=== PATIENT | female | born 1960 | race Caucasian/White ===

== ENCOUNTER 2018-08-23 13:08 | Inpatient (IN) ==
[2018-08-23] MEDS ORDERED: SALINE LOCK IV FLUID XX ONE (13:40)
[2018-08-23] MEDS: NS 1,000 ML IV SCH (14:23)
[2018-08-23] MEDS: TYLENOL PO PRN ×2 (14:28→21:54)
[2018-08-23] MEDS ORDERED: ROCEPHIN 1 GM in NS 50 ML IV SCH (15:15)
[2018-08-23 15:18] LABS: BASO# 0.01 X1000 (0.0-0.2); BASO% 0.2 % (0.0-0.8); HEMATOCRIT 42.4 % (37.0-47.0); HEMOGLOBIN 14.6 g/dL (12.0-16.0); IMM GRAN# 0.04 X1000 (0.0-0.04); IMM GRAN% 0.7 % (0.0-0.5); LYMPH# 0.97 X1000 (1.2-3.4); LYMPH% 16.1 % (20.5-51.1); MCH 31.3 PG (27-31); MCHC 34.4 g/dL (33-37); MONO# 0.23 X1000 (0.11-0.59); MONO% 3.8 % (1.7-9.3); MPV 10.6 FL (7.4-10.4); NEUT# 4.76 X1000 (1.4-6.5); NEUT% 79.2 % (42.2-75.2); PLT 117 X1000 (130-400); RBC 4.66 XMIL (4.2-5.4); RDW 13.7 % (11.5-14.5); WBC 6.01 X1000 (4.8-10.8)
[2018-08-23 15:37] LABS: AGAP 13; ALB/GLOB RATIO 1.1; ALBUMIN 3.5 g/dL (3.5-5.0); ALKALINE PHOSPHATASE 53 U/L (32-104); BUN 12 mg/dL (8-22); CALCIUM 8.2 mg/dL (8.8-10.2); CHLORIDE 97 mmol/L (98-107); COSMO 263; CREATININE 0.6 mg/dL (0.5-0.9); ESTIMATED GFR > 60; GLUCOSE 117 mg/dL (70-104); GOT 39 U/L (10-30); GPT 23 U/L (10-36); POTASSIUM 3.5 mmol/L (3.5-5.1); SODIUM 131 mmol/L (136-145); TCO2 21 mmol/L (25-35); TOTAL BILIRUBIN 0.28 mg/dL (0.20-1.00); TOTAL PROTEIN 6.7 g/dL (6.3-8.3)
[2018-08-23] MEDS ORDERED: MORPHINE IV PRN (18:27)
[2018-08-23] MEDS: MOTRIN PO PRN (18:44)
[2018-08-23] MEDS: DUONEB (A & A) INH PRN (20:26)
--- NOTE | 2018-08-23 20:30 | Diag Imaging Result Doc PS360 ---
EXAM: CHEST-PORTABLE HISTORY: SOB TECHNIQUE: Portable chest single view COMPARISON: None. FINDINGS: The lungs are well expanded. The heart is not enlarged. The vessels are not distended. There are no infiltrates. No effusion identified. IMPRESSION: Negative exam. Electronically signed by Chris Cramer 08/23/2018 8:27 PM
[2018-08-23] MEDS: CRESTOR PO SCH (21:54)
[2018-08-23] MEDS: XANAX PO PRN (21:54)
[2018-08-24] MEDS: MOTRIN PO PRN ×3 (02:30→20:40)
[2018-08-24] MEDS: DUONEB (A & A) INH PRN ×4 (03:12→21:13)
[2018-08-24] MEDS: TYLENOL PO PRN ×4 (04:32→22:28)
[2018-08-24] MEDS ORDERED: LEXAPRO PO SCH (09:00)
[2018-08-24] MEDS ORDERED: PERCOCET-5 PO PRN (10:47)
[2018-08-24] MEDS ORDERED: ZITHROMAX PO SCH (11:00)
--- NOTE | 2018-08-24 11:13 | PROGRESS NOTE ---
DATE: 08/24/2018 SUBJECTIVE: The patient feels subjectively improved today despite having very high fevers and a rough night. She does not feel stable enough to go home, and I would be reluctant to do so. We discussed ID consultation, which is taking place as I am dictating. OBJECTIVE: Vital Signs: T-max was 103.1 degrees. Temperature now is 98.4. On physical exam, patient is alert, oriented, conversive and appropriate. She does have some redness about her face, but she states this is a baseline and not a new rash. Lungs are clear to auscultation. She has a somewhat rattly mild nonproductive cough. Cardiovascular is regular. It is noted that her heart rate is down. ASSESSMENT AND PLAN: 1. The patient has an acute febrile illness. Dr. Camara is providing consultation in that regard. She is presently on Rocephin, and we will alter that according to Dr. Camara's recommendations. 2. We are going to continue intravenous fluids and recheck labs in the morning. 3. Home medications will be reconciled. 4. If the patient shows continued trajectory improvement, then we have no objective diagnosis. We will likely discharge home for quick followup. cc: Saleem Rendon MD
--- NOTE | 2018-08-24 11:33 | Diag Imaging Result Doc PS360 ---
EXAM: CT THORAX W/O CONTRAST 08/24/2018 HISTORY: pneumonia TECHNIQUE: This exam was performed using automated exposure control, adjustment of mA or kV according to patient size, and/or use of iterative reconstruction technique. COMMENT: There are no previous studies available for comparison. There are patchy groundglass opacities throughout both lungs with denser consolidation in the left lower lobe. Other than the superior segment of the right lower lobe is relatively spared. There is no evidence of acute disease in the visualized portion of the abdomen. There is apparent fatty change in the liver. There is no evidence of significant adenopathy. There are spondylotic changes in the thoracic spine. IMPRESSION: Patchy bronchopneumonia with denser consolidation in the left lower lobe. Advise follow-up until clear. Electronically signed by David Jackson 08/24/2018 11:30 AM
--- NOTE | 2018-08-24 11:35 | INFECTIOUS DISEASE CONSULT REP ---
DATE: 08/24/2018 CONCLUSION: The patient is admitted to the hospital with high fever and cough. X-ray does not show pneumonia. She may have bronchitis. She has had a swab for influenza done and it was negative. RECOMMENDATIONS: I agree with treating the patient with Rocephin. I have increased the dose to 2 g IV daily. I have also ordered IV azithromycin and finally I have ordered p.o. Delsym 10 mL every 12 hours as a cough suppressant. Furthermore, I have ordered a CT scan without IV contrast of the chest. I discontinued her antidepressant which she said she has not been taking in a week because she is having trouble keeping medicine down and the reason I discontinued it is because it interacts with the some of the medications I am going to give her, namely azithromycin. DISCUSSION: The patient tells me for a week now, she has been having a high fever and some nausea and vomiting, and just recently she started coughing. She is not bringing up any sputum. She went to an outpatient clinic and she had a swab for influenza done, and she said that she was told was negative. She was given doxycycline. Studies done here, her CBC shows a white count of 6010, hemoglobin 14.6, and platelet count 117,000. Creatinine 0.6, GFR is greater than 60. Liver function studies are normal except for the AST at 39. Blood cultures are pending. Chest x-ray is clear. REVIEW OF SYSTEMS: Eyes and ears: She can see and hear okay. Neck: No stiffness. Respiratory: See present illness. Cardiac: No chest pain or palpitations except when she coughs a lot and she has some pleuritic-type chest pain. Abdomen: See present illness. Genitourinary: No dysuria or flank pain. Neurologic: No seizures. No recent loss of motor or sensory function. Integument: No rash. Bones/Joints/Muscles: The patient states she has osteoarthritis in her joints and they are all hurting her now. 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 She has had a hysterectomy. PREVIOUS HOSPITALIZATIONS AND OPERATIONS: She has had labor and deliveries, hysterectomy, Achilles tendon repair, thyroidectomy, and cholecystectomy. MEDICAL DISEASES: Positive for morbid obesity, hypertension, hyperlipidemia, and hypothyroidism due to resection of the thyroid at surgery. INFECTIOUS DISEASE HISTORY: Positive for UTI. FAMILY HISTORY: Positive for cancer, diabetes mellitus, hypertension, myocardial infarction, and stroke. [place]IAL HISTORY[place] . She has cats for pets. ALLERGIES: She is allergic to codeine, morphine, and sulfa. HOME MEDICATIONS: The home medications include 1. ProAir. 2. Xanax. 3. Doxycycline. 4. Lexapro. 5. Lasix. 6. Synthroid. 7. Lisinopril. 8. Tamiflu. 9. Oxycodone. 10. Rosuvastatin. SOCIAL HISTORY: The patient does not smoke cigarettes, drink alcoholic beverages, or abuse drugs. PHYSICAL EXAMINATION: Vital Signs: Temperature is 98.4 degrees, pulse 84, respirations 18, blood pressure 126/69. The patient is 5 feet 9 inches tall, weighs 224 pounds. General: This is an obese, middle-aged female. She was coughing quite a bit in the room and she looked like she was very sick. Head/eyes/ears/nose/throat: No drainage noted from the nose or ears. I did not see any white patches on her tongue. Neck: No stiffness. Thorax: Increased AP diameter. Lungs: Clear to auscultation. Cardiovascular: Heart rate is regular. Abdomen: Soft and nontender. Neurologic: The patient is awake. She can move her extremities. There is no tremor. Integument: No rash noted. Thank you for the consult. ADDENDUM: The CT scan shows a bilateral pneumonia worse in the left lower lobe. cc: MD Saleem Manuel MD MTDD
[2018-08-24] MEDS: DELSYM LIQUID PO SCH ×2 (11:40→22:29)
[2018-08-24] MEDS: NS 1,000 ML IV SCH (11:41)
[2018-08-24] MEDS: ZITHROMAX 500 MG/NS 500 MG/250 ML IVPB IV SCH (11:41)
[2018-08-24] MEDS ORDERED: ROCEPHIN 2 GM in NS 50 ML IV SCH (13:00)
[2018-08-24] MEDS: ZOFRAN IV PRN (18:37)
[2018-08-24] MEDS: CRESTOR PO SCH ×2 (20:40→20:42)
[2018-08-24] MEDS: XANAX PO PRN (20:40)
[2018-08-25] MEDS: MOTRIN PO PRN ×4 (02:49→21:09)
[2018-08-25] MEDS: DUONEB (A & A) INH PRN ×2 (03:25→11:09)
[2018-08-25] MEDS: TYLENOL PO PRN ×4 (04:00→21:09)
[2018-08-25] MEDS ORDERED: NS 500 ML IV ONE (09:20)
--- NOTE | 2018-08-25 09:42 | PROGRESS NOTE ---
DATE: 08/25/2018 SUBJECTIVE: The patient states that she cannot breathe. She has been coughing a lot during the night. The nurse noted that her blood pressure was low this morning. OBJECTIVE: Vital signs: T-max was a 103 degrees yesterday evening, temperature now is 98.3, pulse is 81, respirations are 20, blood pressure is 107/42. The patient is on 2 L nasal cannula. I do not have an oxygen saturation level. General: The patient is moderately tachypneic. She has crackles and wheezes, mostly in the left lower lobe. The right side appears clear. She is moving air well. Cardiovascular: Regular. LABORATORY DATA: Serum immunoglobulins showed a slightly low IgG. ASSESSMENT AND PLAN: 1. The patient has pneumonia in the left lower lobe as evidenced by CT scan. This appears to have worsened and she is still running fever. I am going to broaden coverage and include vancomycin and Zosyn. I will discontinue her Rocephin. I will start her on 4 times a day breathing treatments with p.r.n. available. We will continue oxygen therapy. 2. The patient's drop in blood pressure is worrisome. I am going to give her a bolus of fluids to try and bring that pressure up. 3. We will control cough with some codeine cough syrup. 4. The patient will need to be translated into a full admission as she is not recovering as expected. cc: Saleem Rendon MD
[2018-08-25] MEDS: ROBITUSSIN-AC PO PRN ×3 (09:44→21:09)
[2018-08-25] MEDS: ZOFRAN IV PRN (09:48)
[2018-08-25] MEDS: ZOSYN 3.375 GM in NS 50 ML IV SCH ×3 (09:48→21:19)
[2018-08-25] MEDS: VANCOMYCIN 1 GM/NS 1 GM/250 ML IVPB IV SCH ×2 (10:59→21:10)
[2018-08-25] MEDS: ZITHROMAX 500 MG/NS 500 MG/250 ML IVPB IV SCH (12:03)
[2018-08-25] MEDS: DUONEB (A & A) INH SCH ×2 (15:48→20:45)
[2018-08-25] MEDS: CRESTOR PO SCH (21:09)
[2018-08-25] MEDS: XANAX PO PRN (21:09)
[2018-08-26] MEDS: ZOFRAN IV PRN (01:03)
[2018-08-26] MEDS: TYLENOL PO PRN ×4 (02:55→22:31)
[2018-08-26] MEDS: MOTRIN PO PRN ×4 (02:56→22:31)
[2018-08-26] MEDS: ROBITUSSIN-AC PO PRN ×4 (02:56→21:18)
[2018-08-26] MEDS: ZOSYN 3.375 GM in NS 50 ML IV SCH ×2 (03:06→09:40)
[2018-08-26] MEDS: DUONEB (A & A) INH SCH ×4 (03:07→20:54)
[2018-08-26 06:05] LABS: BASO# 0.01 X1000 (0.0-0.2); BASO% 0.3 % (0.0-0.8); EOS# 0.01 X1000 (0.0-0.7); EOS% 0.3 % (0.0-10.0); NEUT% 58.1 % (42.2-75.2)
[2018-08-26 06:30] LABS: AGAP 13; ALB/GLOB RATIO 1.1; ALBUMIN 2.8 g/dL (3.5-5.0); ALKALINE PHOSPHATASE 72 U/L (32-104); BUN 7 mg/dL (8-22); CALCIUM 8.3 mg/dL (8.8-10.2); CHLORIDE 104 mmol/L (98-107); COSMO 282; CREATININE 0.5 mg/dL (0.5-0.9); ESTIMATED GFR > 60; GLUCOSE 119 mg/dL (70-104); GOT 84 U/L (10-30); GPT 39 U/L (10-36); POTASSIUM 3.4 mmol/L (3.5-5.1); SODIUM 142 mmol/L (136-145); TCO2 25 mmol/L (25-35); TOTAL PROTEIN 5.4 g/dL (6.3-8.3)
[2018-08-26 06:54] LABS: HEMATOCRIT 35.5 % (37.0-47.0); LYMPH# 1.19 X1000 (1.2-3.4); LYMPH% 36.7 % (20.5-51.1); MCHC 33.8 g/dL (33-37); MCV 91.7 FL (81-99); MONO# 0.15 X1000 (0.11-0.59); MONO% 4.6 % (1.7-9.3); MPV 10.9 FL (7.4-10.4); NEUT# 1.88 X1000 (1.4-6.5); PLT 136 X1000 (130-400); RBC 3.87 XMIL (4.2-5.4); RDW 13.9 % (11.5-14.5); WBC 3.24 X1000 (4.8-10.8)
[2018-08-26] MEDS: XANAX PO PRN (09:37)
[2018-08-26] MEDS: ZITHROMAX 500 MG/NS 500 MG/250 ML IVPB IV SCH (10:20)
--- NOTE | 2018-08-26 12:09 | PROGRESS NOTE ---
DATE: 08/26/2018 SUBJECTIVE: Ms. Parrish has a persistent left lower lobe pneumonia. She continues with a persistent cough, pleuritic chest pain and mild shortness of breath while walking to the bathroom. She had a fever of 101 degrees on 08/25/2018 at 4:19 a.m. She has been afebrile since that time. A chest CT scan demonstrated diffuse left lower lobe dense infiltrate. OBJECTIVE: Vitals: She is afebrile. Pulse 74, respirations 20, blood pressure 103/46, O2 saturation 92% on room air. CARDIOVASCULAR: Regular rate and rhythm. Lungs: Diminished breath sounds in the left base. Abdomen: Soft, nontender, with active bowel sounds. ASSESSMENT AND PLAN: Community-acquired pneumonia. She has a persistent left lower lobe infiltrate on CT scan of the thorax. We will continue DuoNeb nebulizer treatments and broad- spectrum antibiotics, including Zosyn and vancomycin. We will continue Robitussin AC as needed for cough suppression. cc: MD Saleem Mares MD
[2018-08-26] MEDS: VANCOMYCIN 1 GM/NS 1 GM/250 ML IVPB IV SCH (13:36)
[2018-08-26] MEDS ORDERED: GAMUNEX-C 10% IV ONE (14:00)
[2018-08-26] MEDS ORDERED: MAXIPIME 2 GM in NS 100 ML IV SCH (14:45)
--- NOTE | 2018-08-26 15:11 | INFECTIOUS DISEASE PROGRESS NO ---
DATE: 08/26/2018 PRESENT ILLNESS: The patient has a bilateral pneumonia. MEDICATION: The patient currently is receiving azithromycin, Zosyn and vancomycin. PHYSICAL EXAMINATION: Vital Signs: Temperature is 97.8 degrees, pulse 74, respirations 20, blood pressure 112/62. General: This is an ill-appearing middle-aged female. She seems less dyspneic and having less cough than when I saw her 2 days ago. Head/eyes/ears/nose/throat: She can hear my spoken words and see near objects. She does not have any white coating on her tongue. Sinuses are not tender. Lungs: Clear to auscultation. Cardiovascular: Heart rate is regular. Abdomen: Soft and nontender. Neurologic: The patient is awake. She can move her extremities. There is no tremor. LAB AND X-RAY: The patient's IgG level is 557 and the IgA level is 144. The patient's lab studies for today show a CBC with a white count of 3240, hemoglobin 12 and platelet count 136,000. The patient's creatinine is 0.5. GFR is greater than 60. Liver function studies show that there is an elevation of the AST at 84. IgG and IgM for cytomegalovirus is negative. It is interesting to note that on the patient's CBC the neutrophil percent was 79%, today it is 58% and the lymphocyte percent was 16.1 and today it is 36.7%. This may mean that the patient has a viral pneumonia. ASSESSMENT AND PLAN: The patient has pneumonia. I have substituted cefepime for Zosyn in order to avoid renal toxicity between vancomycin and Zosyn. I have also ordered a pneumococcal urinary antigen and a Legionella urinary antigen and I have requested a non-contrasted CT scan tomorrow morning of the chest to see how the patient's pneumonia is progressing. I have ordered a 20 g dose of IV IG to be given this afternoon. My long-term plan on the immunoglobulin situation is to repeat the level in about 6 weeks or more and if it is still low, the patient may be a candidate for immunoglobulin replacement therapy. COMORBIDITIES: I really cannot establish a comorbidity in this patient except for the fact that her IgG level was low. cc: MD Saleem Manuel MD
[2018-08-26] MEDS ORDERED: NS 500 ML ONE (16:08)
[2018-08-26] MEDS: MAXIPIME 2 GM in NS 100 ML IV SCH (18:13)
[2018-08-26] MEDS: CRESTOR PO SCH (21:18)
[2018-08-27] MEDS: MAXIPIME 2 GM in NS 100 ML IV SCH ×3 (01:37→17:10)
[2018-08-27] MEDS: VANCOMYCIN 1 GM/NS 1 GM/250 ML IVPB IV SCH ×2 (02:43→18:00)
[2018-08-27] MEDS: DUONEB (A & A) INH SCH ×5 (03:26→20:50)
[2018-08-27] MEDS: ROBITUSSIN-AC PO PRN ×2 (05:00→20:20)
[2018-08-27] MEDS: DUONEB (A & A) INH PRN ×2 (07:22→14:08)
--- NOTE | 2018-08-27 08:35 | Diag Imaging Result Doc PS360 ---
EXAM: CT THORAX W/O CONTRAST INDICATION: pneumonia TECHNIQUE: This exam was performed using automated exposure control, adjustment of mA or kV according to patient size, and/or use of iterative reconstruction technique. COMPARISON: 08/24/2018 FINDINGS: There is a small to moderate-sized left pleural effusion that has increased in size during the interval. Patchy groundglass infiltrates throughout both lungs are similar to the previous study and the dense consolidation involving the left lower lobe is essentially stable. There has been development of a dense consolidation versus atelectasis involving the lingula that was not present on the previous study. There is minimal subsegmental atelectasis at the right lung base. The mediastinum is unchanged. Limited views of the upper abdomen are unchanged. IMPRESSION: 1.Small to moderate-sized left pleural effusion that has increased in size. 2.Diffuse patchy infiltrate throughout both lungs and more dense left lower lobe consolidation are essentially stable. 3.Interval development of dense platelike atelectasis versus infiltrate in the lingula. Electronically signed by Diego Luna 08/27/2018 8:32 AM
--- NOTE | 2018-08-27 09:13 | PROGRESS NOTE ---
DATE: 08/27/2018 SUBJECTIVE: The patient admits, albeit reluctantly, that she is feeling somewhat better. She has not had fever in over 24 hours. She is still coughing. She has some pleuritic pain with cough and movement. She states that she is having difficulty breathing at times and is wheezing. OBJECTIVE: Vital Signs: Temperature 97.6, pulse 54, respiratory rate 18, blood pressure 120/70, 95% saturated on room air. Lungs: The patient has diffuse bilateral expiratory wheezes with fair air movement. She has crackles in the left base. Again, breath sounds are present there. Neuropsychiatric: The patient is alert, oriented, conversive and appropriate. LABORATORY DATA: No labs were done today. IMAGING STUDIES: The patient had a repeat CT scan, which was read as stable. Consolidation left lower lobe, but with some atelectasis and/or consolidation of lingula, which was not present. She also has a moderate-sized pleural effusion, which is increased in size, mainly on the left. ASSESSMENT AND PLAN: 1. The patient's left lower lobe pneumonia is of uncertain etiology. She has received immunoglobulin. She is receiving multimodal antibiotics with very broad coverage range. She has clinically improved. 2. We will continue antibiotics and monitoring. If Dr. Camara thinks it is prudent, we will get Mina Bah to look at her and see if he thinks that a bronchoscopy or a tap of that effusion would be beneficial. 3. Blood pressure is stable. 4. Cough is reasonably controlled. She has appropriate aerosols written for and will be using those 4 times a day and as needed. 5. I still think we are at least a couple of days away from discharge. cc: Saleem Rendon MD
[2018-08-27] MEDS: XANAX PO PRN ×2 (10:11→23:59)
[2018-08-27] MEDS: ZITHROMAX PO SCH (11:17)
--- NOTE | 2018-08-27 13:50 | INFECTIOUS DISEASE PROGRESS NO ---
DATE: 08/27/2018 HISTORY OF PRESENT ILLNESS: The patient has bilateral pulmonary infiltrates due to pneumonia. In addition she has developed a pleural effusion. MEDICATIONS: The patient is receiving azithromycin, cefepime and vancomycin. PHYSICAL EXAMINATION: Vital Signs: Temperature is 97.8 degrees, pulse 81, respirations 21, blood pressure 129/56. General: This is an ill-appearing middle-aged female. Clinically she looks a lot better than when she came in, but she still is somewhat dyspneic and also she still has coughing. Head/eyes/ears/nose/throat: She can hear my spoken words and see near objects. She does not have any white patches on her tongue. Lungs: Clear to auscultation. Cardiovascular: Heart rate is regular. Abdomen: Soft and nontender. Extremities: The legs are edematous but not erythematous. LAB AND X-RAY STUDIES: 1. There are no new labs for today. The patient's repeat CT scan shows small to moderate-sized left pleural effusion that has increased in size. 2. 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 3. Interval development of platelike atelectasis versus infiltrate in the lingula. ASSESSMENT AND PLAN: The patient has a pneumonia. The exact etiology of it is uncertain. With the patient's low white count and the fact that the that the lymphocytes have gradually increased, and the fact that the percentage of lymphocytes is increased, the patient may have a viral lung infection. Also could be a mycoplasma infection or possibly some other etiology. In any event, I think I think it would be very reasonable to consult Dr. Bah for him to consider about doing a thoracentesis and/or bronchoscopy. For now, I think that we should continue with the current antibiotic regimen consisting of cefepime, vancomycin, and azithromycin. COMORBIDITIES: About the only thing I can find is that she did have a slightly low IgG level. cc: MD Saleem Manuel MD
[2018-08-27] MEDS: CRESTOR PO SCH (20:20)
[2018-08-28] MEDS: MAXIPIME 2 GM in NS 100 ML IV SCH ×3 (00:21→21:49)
[2018-08-28] MEDS: TYLENOL PO PRN (00:27)
[2018-08-28] MEDS: MOTRIN PO PRN (00:27)
[2018-08-28] MEDS: VANCOMYCIN 1 GM/NS 1 GM/250 ML IVPB IV SCH ×2 (01:16→15:29)
--- NOTE | 2018-08-28 01:56 | PULMONOLOGY CONSULTATION ---
DATE: 08/27/2018 REQUESTING PHYSICIAN: Dr. Perry Camara. REASON FOR CONSULTATION: Consider thoracentesis and bronchoscopy. HISTORY OF PRESENT ILLNESS: Ms. Parrish is a 57-year-old white female with remote history of tobacco use, history of thyroid nodule with thyroidectomy, with morbid obesity and a BMI greater than 45, who was in her usual state of health until 08/19/2018 when she developed a cough with shaking chills and fever as high as 103 degrees. The patient was evaluated at a walk-in clinic the following day and a flu test was negative by report, but she was initiated on Tamiflu and doxycycline. The patient continued to run fevers on 08/20/2018, 08/21/2018, and 08/22/2018 until she was evaluated in Dr. Rendon's office on 08/23/2018. She had some confusion in his office. Chest x-ray revealed infiltrate at the left base, although the official interpretation was no infiltrates. The patient underwent CT scan of the thorax on 08/24/2018, which revealed a dense consolidation in the left lower lobe with patchy infiltrates in both upper lobes. The patient's fever on presentation to the hospital was 103 degrees, and she continued to have fevers on 08/24/2018 and 08/25/2018, but has been afebrile since that time. She underwent a follow up CT scan this morning which revealed a small right-sided pleural effusion and continued consolidation in the left base. The upper lobe infiltrates are becoming less prominent, but she does have some new atelectasis in the lingula. White blood count on presentation to the hospital was 6.0 and was 3.24 yesterday. Her immunoglobulin levels were reduced at 557 mg/dL and she has undergone immunoglobulin replacement. Clinically she feels significantly better, although she does have shortness of breath with limited exertion. PAST MEDICAL HISTORY/PROBLEM LIST: 1. The patient is status post thyroidectomy for a thyroid nodule. Several family members have had thyroid cancer raising the possibility of multiple endocrine neoplasia. 2. Morbid obesity with a BMI greater than 45. 3. Status post hysterectomy. 4. Status post cholecystectomy. 5. Hypertension. 6. Iatrogenic hypothyroidism. 7. Dyslipidemia. FAMILY HISTORY: Positive for thyroid cancer in multiple family members, diabetes, coronary artery disease, hypertension, and strokes. SOCIAL HISTORY: Notable for prior tobacco use. 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 PHYSICAL EXAMINATION: General: Reveals an obese white female resting comfortably and in no distress. Vital Signs: BP 145/79, heart rate 86, respiratory rate 22, oxygen saturation 92% on room air. HEENT: Pupils are equal and reactive. Oropharynx is clear. Neck: Supple. Chest: Reveals diminished breath sounds left base with E to A changes. Cardiac: S1, S2. Abdomen: Soft and obese. Extremities: Reveal trace edema. LABORATORIES: Influenza was negative. Sputum culture is pending. Blood cultures are pending. IMPRESSION: The patient is a 57-year-old with a severe community-acquired pneumonia associated with high-grade fevers, confusion, shaking chills, with dense consolidation on chest x-ray/CT scan. The patient has developed a small pleural effusion. The pleural effusion could be tapped but is relatively small and is most likely a parapneumonic effusion. At this juncture I think it is less likely to be an empyema given her ongoing clinical improvement. Her immunoglobulin level is low and will need to be rechecked sometime in the future, but I suspect it is low due to her overwhelming pneumonia. I also suspect that her white blood count is low due to her overwhelming pneumonia and expected to start climbing over the next several days. At this juncture, would recommend continue antibiotics per Infectious Disease which is also covering atypical agents, initiate incentive spirometry, and initiate physical therapy to have the patient ambulate as tolerated. If she has evidence of clinical decline, then I would first pursue a thoracentesis and second pursue bronchoscopy at that juncture. RECOMMENDATION: 1. Continue antibiotics as outlined above. 2. Initiate incentive spirometry. 3. Initiate physical therapy. 4. Follow up white blood count and hemoglobin levels as outlined above. cc: MD Saleem Lucas MD
[2018-08-28] MEDS: DUONEB (A & A) INH SCH ×4 (04:00→20:05)
[2018-08-28 05:47] LABS: BASO% 3.1 % (0.0-0.8); EOS# 0.06 X1000 (0.0-0.7); EOS% 1.9 % (0.0-10.0); HEMOGLOBIN 11.3 g/dL (12.0-16.0); IMM GRAN# 0.03 X1000 (0.0-0.04); IMM GRAN% 0.9 % (0.0-0.5); LYMPH% 53.5 % (20.5-51.1); MCHC 32.3 g/dL (33-37); MCV 92.8 FL (81-99); MONO# 0.38 X1000 (0.11-0.59); MONO% 11.9 % (1.7-9.3); MPV 10.2 FL (7.4-10.4); NEUT# 0.91 X1000 (1.4-6.5); NEUT% 28.7 % (42.2-75.2); PLT 228 X1000 (130-400); RBC 3.77 XMIL (4.2-5.4); RDW 14.1 % (11.5-14.5); WBC 3.18 X1000 (4.8-10.8)
--- NOTE | 2018-08-28 09:14 | PROGRESS NOTE ---
DATE: 08/28/2018 SUBJECTIVE: The patient is feeling a bit better. She is still short of breath with really minimal exertion. She is coughing some and wheezing some, but the cough is nonproductive, and the wheezing itself has not limited her respiratory capacity per se. She is sleeping well, and p.o. intake is good. OBJECTIVE: Vital Signs: Temperature 98.5, pulse 72, respirations 22, blood pressure 121/61, saturating 93% on room air. General: Obese, white female in no acute distress. She is alert, oriented, conversive, and appropriate. Lungs: Left-sided crackles and wheezes with deep inspiration. This usually instigates a cough reflex. Compared to yesterday, the right side is clear. There is no wheezing heard on the right side. Cardiovascular: Regular. LABORATORY DATA: White cell count is 3.18, hematocrit 35. ASSESSMENT AND PLAN: The patient's left lower lobe pneumonia is being treated with broad-spectrum antibiotics, mainly covering community-acquired pneumonia. Dr. Bah's consultation also concluded that his likelihood was a community-acquired pneumonia with a parapneumonic effusion that is likely not an empyema. We will continue antibiotics, respiratory treatments, inspiratory spirometry, and watch for more signs of clinical improvement. Blood pressure is stable. We are instituting some physical therapy to see if we can build up her stamina and respiratory capacity. cc: Saleem Rendon MD
[2018-08-28] MEDS: ZITHROMAX PO SCH (11:39)
[2018-08-28] MEDS: XANAX PO PRN ×2 (12:48→23:11)
[2018-08-28] MEDS: ROBITUSSIN-AC PO PRN (16:00)
--- NOTE | 2018-08-28 17:30 | INFECTIOUS DISEASE PROGRESS NO ---
DATE: 08/28/2018 PRESENT ILLNESS: Ms. Parrish is being treated for bilateral pneumonia with a pleural effusion. There is also an immunoglobulin deficiency, with a low IgG. MEDICATIONS: She is receiving cefepime 2 g IV every 8 hours, vancomycin IV per Pharmacy dosing, and Zithromax 500 mg by mouth daily. She has had one dose of IVIG on this admission. PHYSICAL EXAMINATION: Vital Signs: Temperature is 98.5 degrees, pulse rate 72, respiratory rate 22, blood pressure 121/61, O2 saturation is 93% on room air. General: This is a morbidly obese chronically ill-appearing middle-aged female. She is sitting up in a chair, currently in no acute distress. HEENT: Atraumatic, normocephalic. Oral mucous membranes are pink and dry. Conjunctivae are pink. Neck: Supple. Trachea is midline. Cardiovascular: Heart rate is regular. Respiratory: Lung sounds have wheezes throughout all lung reeves. Abdomen: Soft, obese, and nontender. She does have some pain when she coughs to her abdomen. Neurologic: She is awake, alert, and oriented and able to move her extremities with some generalized weakness noted. DIAGNOSTIC STUDIES: Today her white count is 3.18, hemoglobin 11.3, platelet count 228,000. Her urine Legionella antigen was negative. The pneumococcal urinary antigen was also negative. She has a sputum which is pending. The Gram stain shows gram-negative rods and gram-positive cocci. Blood cultures have shown no growth after 48 hours. No imaging reports today. ASSESSMENT AND PLAN: Ms. Parrish is being treated for bilateral pneumonia. She states she is feeling better today. There was an episode of a panic attack earlier in the day today, but right now she is calm and relaxed, sitting up in the chair without any oxygen at this time. For now, we will continue cefepime, vancomycin, and Zithromax as ordered. Since her IgG level is subtherapeutic, we will plan to recheck her levels in 6-8 weeks. These plans have been discussed with and recommended by Dr. Camara. COMORBIDITIES: For Ms. Parrish include morbid obesity and anxiety disorder. Dictated by BO Rodriguez for Perry Camara MD This chart was documented by, BO Rodriguez and accurately reflects the services performed, treatment plan and medical decisions as attested by the providers signature Perry Camara MD. cc: MD Saleem Manuel MD MTDD
--- NOTE | 2018-08-28 21:46 | PULMONOLOGY PROGRESS NOTE ---
DATE: 08/28/2018 SUBJECTIVE: The patient overall feels better. She was able to walk down to the coffee shop today with only mild to moderate dyspnea. She is approaching 1500 mL on her incentive spirometer. OBJECTIVE: The patient has been afebrile for the last 24 hours. Blood pressure 115/77, heart rate 68, respiratory rate 20, oxygen saturation 93% on room air. HEENT: Pupils are equal and reactive. Oropharynx is clear. Neck is supple. Chest reveals decreased breath sounds, left base. Cardiac exam: S1, S2. Abdomen is soft. Extremities reveal trace edema. LABORATORY DATA: White blood count 3.18, hemoglobin 11.3, platelet count 228,000. IMPRESSION: A 57-year-old with: 1. Severe community-acquired pneumonia. 2. Small left-sided pleural effusion. 3. Dyspnea on exertion. 4. Relative leukopenia. 5. Immunoglobulin deficiency, status post replacement. DISCUSSION: Overall, the patient continues to improve. She reports she is stronger. She does not have dyspnea with limited speed while walking. Her incentive spirometry has increased to 1500 mL. RECOMMENDATIONS: 1. Continue ambulation. Physical Therapy indicates she is strong enough to ambulate by herself. 2. Continue incentive spirometry. 3. Continue antibiotics. 4. Obtain 2-view chest x-ray tomorrow. 5. Follow up white blood count tomorrow. 6. Followup immunoglobulin level in 4-6 weeks. cc: MD Saleem Lucas MD
[2018-08-28] MEDS: CRESTOR PO SCH (21:49)
[2018-08-29] MEDS: DUONEB (A & A) INH SCH ×4 (02:00→21:11)
[2018-08-29] MEDS: VANCOMYCIN 1 GM/NS 1 GM/250 ML IVPB IV SCH ×2 (02:39→13:46)
[2018-08-29] MEDS: TYLENOL PO PRN (03:01)
[2018-08-29] MEDS: MOTRIN PO PRN (03:01)
[2018-08-29] MEDS: MAXIPIME 2 GM in NS 100 ML IV SCH ×3 (05:00→19:43)
--- NOTE | 2018-08-29 08:06 | Diag Imaging Result Doc PS360 ---
EXAM: CHEST-2 VIEWS 08/29/2018 HISTORY: abnormal exam TECHNIQUE: PA and lateral chest COMMENT: There is dense alveolar opacification in the left lower lobe which appears slightly worse than on the previous study of 08/23/2018. There is also some atelectasis or pneumonia in the lingula which was not apparent on the previous study. IMPRESSION: Worsening pneumonia on the left. Electronically signed by David Jackson 08/29/2018 8:04 AM
--- NOTE | 2018-08-29 08:55 | PROGRESS NOTE ---
DATE: 08/29/2018 SUBJECTIVE: The patient states that she is feeling a bit better, although she was somewhat short of breath last night and continues to have a hacking cough, which occurs in fairly violent paroxysms. She is wheezing a little bit. OBJECTIVE: Vital Signs: 98.1 degrees, 68, 134/58. General: The patient is alert, oriented, conversive and appropriate. Lungs: There is a faint expiratory wheeze on the right side which is rather diffuse. It is considerably more intense and focal in the left lower lobe. She has a dry hacking cough which I observed it did not clear her breathing in any way. Overall, the air movement in the left lower lobe is improved from previous exams, but is now somewhat wheezy. Chest x-ray was performed today. ASSESSMENT/PLAN: 1. The patient's left lower lobe pneumonia is being treated with broad-spectrum antibiotics and aerosol treatments. She is using inspiratory spirometer and is participating in physical therapy to try and stem frazer her overall capacity and work of breathing. 2. She has shown a definite trajectory of improvement. We will continue this treatment. At some point, we will need to design an outpatient oral antibiotic treatment for her. 3. The chest x-ray from this morning was not read favorably by the radiologist, but clinical improvements would speak otherwise. Knowing that chest x-rays can often lag many weeks behind, I am not really concerned with the radiologic findings as much as the clinical situation. 4. Blood pressure is stable. 5. We will continue physical therapy. 6. The patient continues to require inpatient treatment. cc: Saleem Rendon MD
[2018-08-29] MEDS: ZITHROMAX PO SCH (09:08)
--- NOTE | 2018-08-29 14:46 | INFECTIOUS DISEASE PROGRESS NO ---
DATE: 08/29/2018 PRESENT ILLNESS: Ms. Parrish is being treated for bilateral pneumonia. She also has an immunoglobulin deficiency with a low IgG. MEDICATIONS: Today is day 3 of cefepime 2 g IV every 8 hours and day 4 of IV vancomycin per pharmacy dosing. She is also on day 2 of Zithromax 500 mg by mouth daily. PHYSICAL EXAMINATION: Vital Signs: Temperature is 98.9 degrees, pulse rate 74, respiratory rate 18, blood pressure 118/70, O2 saturation is 94% on room air. General: This is a morbidly obese, middle-aged female. She is sitting up in a chair. Currently in no acute distress. HEENT: Atraumatic, normocephalic. Oral mucous membranes are pink and dry. Conjunctivae are pink. Cardiovascular: Heart rate is regular. Respiratory: Lung sounds are clear in the upper lobes, diminished in the mid and bases. Abdomen: Soft, obese, and nontender. Bowel sounds are active. Neurologic: She is awake, alert, and oriented. Able to ambulate with assistance. Extremities: There is generalized edema noted to her lower extremities, which are elevated. LABORATORY AND X-RAY: No labs available today. Her chest x-ray shows worsening pneumonia on the left. ASSESSMENT AND PLAN: Ms. Parrish is being treated for bilateral pneumonia. She seems to be doing better. Most likely the chest x-ray results lag behind, as she is actually doing better from a clinical standpoint. For now, we will continue her cefepime. Zithromax and vancomycin have been discontinued, and replaced with doxycycline 100mg by mouth every 12 hours. She has recently returned from a trip to the [facility], so we will check her for the possibility of a coccidioides infection. In the meantime, we will prescribe fluconazole 400mg by mouth daily. Because of potential interactions, Zofran has been stopped. We will plan to recheck her IgG levels in 6 to 8 weeks after she is discharged. These plans have been discussed with and recommended by Dr. Camara. COMORBIDITIES: For Ms. Parrish include morbid obesity and anxiety disorder. Dictated by BO Rodriguez for Perry Camara MD This chart was documented by, BO Rodriguez and accurately reflects the services performed, treatment plan and medical decisions as attested by the providers signature Perry Camara MD. cc: MD Saleem Manuel MD [facility] HOSPITALChristianne
[2018-08-29] MEDS ORDERED: DIFLUCAN PO SCH (16:00)
[2018-08-29] MEDS: DOXYCYCLINE PO SCH (16:59)
[2018-08-29] MEDS: CRESTOR PO SCH ×2 (19:43→22:53)
[2018-08-29] MEDS ORDERED: ZYVOX PO SCH (21:00)
--- NOTE | 2018-08-29 22:02 | PULMONOLOGY PROGRESS NOTE ---
DATE: 08/29/2018 SUBJECTIVE: The patient had some shortness of breath last evening but has been ambulating today. She has a cough. She continues to do incentive spirometry and is pushing greater than 1500 mL. OBJECTIVE: Vital Signs: The patient has been afebrile for the last 24 hours. Blood pressure 153/76, heart rate 62, respiratory rate 18, oxygen saturation 93%. HEENT: Pupils are equal and reactive. Oropharynx is clear. Neck: Supple. Chest: Reveals diminished breath sounds, left base, with coarse crackles. Cardiac exam: S1, S2. Abdomen: Obese and soft. Extremities: Reveal trace edema. LABORATORIES: Chest x-ray reveals some re-aeration of the left base. The radiologist indicates that the chest x-ray is worsening, but this is compared to a chest x-ray on admission which was read as normal. When compared to her CT scan, I believe it is stable to marginally improved. No new chemistries or CBC. Sputum culture preliminary reveals sparse growth. IMPRESSION: A 57-year-old with: 1. Severe community-acquired pneumonia. 2. Immunoglobulin deficiency, status post replacement therapy. 3. Small left-sided effusion. 4. Relative leukopenia. 5. Dyspnea on exertion. RECOMMENDATION: 1. Continue incentive spirometry. 2. Continue antibiotics. 3. Continue physical therapy. 4. Follow up chest x-ray tomorrow morning. If chest x-ray is improving, I believe she could be safely discharged. 5. Recommend followup immunoglobulin levels in 4 to 6 weeks. cc: MD Saleem Lucas MD [facility]
[2018-08-30] MEDS: XANAX PO PRN (01:12)
[2018-08-30] MEDS: DUONEB (A & A) INH PRN (01:27)
[2018-08-30] MEDS: DUONEB (A & A) INH SCH ×2 (03:23→08:27)
[2018-08-30] MEDS: MAXIPIME 2 GM in NS 100 ML IV SCH ×2 (04:14→11:55)
[2018-08-30] MEDS ORDERED: LASIX IV ONE (06:00)
[2018-08-30 06:02] LABS: BASO# 0.03 X1000 (0.0-0.2); BASO% 0.6 % (0.0-0.8); EOS# 0.08 X1000 (0.0-0.7); EOS% 1.5 % (0.0-10.0); HEMATOCRIT 37.3 % (37.0-47.0); IMM GRAN# 0.19 X1000 (0.0-0.04); IMM GRAN% 3.5 % (0.0-0.5); LYMPH# 1.74 X1000 (1.2-3.4); MCH 30.5 PG (27-31); MCHC 32.2 g/dL (33-37); MCV 94.7 FL (81-99); MONO# 0.52 X1000 (0.11-0.59); MONO% 9.6 % (1.7-9.3); MPV 9.8 FL (7.4-10.4); NEUT# 2.87 X1000 (1.4-6.5); NEUT% 52.8 % (42.2-75.2); PLT 342 X1000 (130-400); RBC 3.94 XMIL (4.2-5.4); RDW 13.8 % (11.5-14.5); WBC 5.43 X1000 (4.8-10.8)
[2018-08-30] MEDS: DOXYCYCLINE PO SCH (06:18)
[2018-08-30 06:25] LABS: AGAP 11; ALB/GLOB RATIO 0.9; ALBUMIN 3.2 g/dL (3.5-5.0); ALKALINE PHOSPHATASE 71 U/L (32-104); BUN 6 mg/dL (8-22); CALCIUM 8.5 mg/dL (8.8-10.2); CHLORIDE 110 mmol/L (98-107); COSMO 290; CREATININE 0.4 mg/dL (0.5-0.9); ESTIMATED GFR > 60; GLUCOSE 103 mg/dL (70-104); GOT 31 U/L (10-30); GPT 32 U/L (10-36); MAGNESIUM 1.9 mg/dL (1.5-2.7); PHOSPHORUS 3.5 mg/dL (2.7-4.5); POTASSIUM 3.8 mmol/L (3.5-5.1); SODIUM 147 mmol/L (136-145); TCO2 26 mmol/L (25-35); TOTAL BILIRUBIN 0.38 mg/dL (0.20-1.00); TOTAL PROTEIN 6.6 g/dL (6.3-8.3)
[2018-08-30] MEDS ORDERED: SYNTHROID PO SCH (09:15)
[2018-08-30] MEDS ORDERED: KLOR-CON PO SCH (09:15)
--- NOTE | 2018-08-30 09:47 | PROGRESS NOTE ---
DATE: 08/30/2018 SUBJECTIVE: The patient is complaining vociferously about wanting to go home. She states that her breathing is still slightly compromised but she has improved tremendously. OBJECTIVE: Vital Signs: 98.1, 74, 20, 120/62, 93% saturated on room air. Physical Examination: Improvement in left lower lobe crackles. There was no wheezing on either side. Cardiovascular is regular. Extremities show her typical edema pattern of about trace to 1+ . Neuropsychiatric: The patient is alert, oriented, conversive, and appropriate. ASSESSMENT AND PLAN: 1. The patient's left lower lobe pneumonia continues to improve clinically. She is still on cefepime and we will need to decide some type of outpatient oral regimen for her. I would love to send her home as quickly as possible at this point. 2. Noted the Coccidioides antibodies that were ordered. 3. Blood pressure is stable. She is not back on her lisinopril. I plan to give her the usual dose of Lasix to see if we can get a little bit of that swelling out without compromising blood pressure or any other parameters. 4. Continue physical therapy. cc: Saleem Rendon MD
--- NOTE | 2018-08-30 10:11 | INFECTIOUS DISEASE PROGRESS NO ---
DATE: 08/30/2018 PRESENT ILLNESS: The patient is being treated for a bilateral pneumonia. The thought now is that it may be due to coccidioidomycosis. The patient also has an immunoglobulin deficiency with low IgG. MEDICATIONS: Currently, the patient is on cefepime, doxycycline and fluconazole. PHYSICAL EXAMINATION: Vital Signs: Temperature is 98.1 degrees, pulse 65, respirations 15, blood pressure 120/62. General: This is an obese middle-aged female. She is in no acute distress. Head/eyes/ears/nose/throat: She can hear my spoken words and see near objects. She does not have any white coating on her tongue. Neck: No meningismus. Lungs: The patient has bibasilar rales. Cardiovascular: Heart rate is regular. Abdomen: Soft, obese, and nontender. Extremities: The patient has leg edema, but no erythema. Neurologic: Patient is alert. She can ambulate by herself. There is no tremor. LAB AND X-RAY: There is no new radiographic study. CBC today shows a white count of 5430, hemoglobin 12, platelet count 342,000. Creatinine is 0.4. GFR is greater than 60. Liver function studies are normal. ASSESSMENT AND PLAN: The patient has bilateral pneumonia. It may be due to coccidioidomycosis. The serology for the coccidioidomycosis is pending. The plan today is to send the patient home. Doxycycline 100 mg every 12 hours, Ceftin 500 mg oral every 12 hours, and fluconazole 400 mg oral daily. The patient will be seen in my office in a week, at which time she will be examined and we will repeat the chest x-ray. Also, the Coccidioides serology is still pending. The patient has been told not to take her Celexa while she is on fluconazole. COMORBIDITIES: The patient's comorbidities: She has morbid obesity. She has anxiety and also she makes frequent trips to the [place] of [place] where Coccidioides is endemic. cc: MD Saleem Manuel MD
[2018-08-30 11:13] VITALS: BP 134/62
--- NOTE | 2018-08-30 16:07 | DISCHARGE SUMMARY ---
ADMISSION DATE: 08/23/2018 DISCHARGE DATE: 08/30/2018 DISCHARGE DIAGNOSES: 1. Left lower lobe pneumonia. 2. Tachycardia. 3. Dehydration. 4. Fever. 5. Morbid obesity. 6. Hypertension. 7. History of asthma. CONSULTATION: 1. Dr. Perry Camara. 2. Dr. Alan Bah. OPERATIVE PROCEDURES: None. HOSPITAL COURSE: This 57-year-old white female was admitted with fever and prostration for several days. She was tachycardic and dehydrated upon arrival, was given some fluid resuscitation. She was started on empiric antibiotics after she continued to run fever. Her flu test was negative. Dr. Perry Camara was consulted. He ordered a CT scan which, unlike the chest x-ray, showed extensive left lower lobe pneumonia. This did not show up on x-ray initially. Dr. Camara upgraded her antibiotics and we added staph coverage after the patient continued to run fever. She seemed to improve. We never got any sputum that was able to be cultured. It had been noted that the patient had traveled to [facility] over a month ago and may have had exposure risks. Therefore, rather esoteric entities. As a result, Dr. Camara started her on fluconazole as well. The patient had a rather slow course of improvement with continued wheezing and rales in her lungs. Over the last 2 days prior to discharge, she seemed to improve and was able to mobilize herself into the hallway. On the day of discharge she complained vociferously about wanting to go home, so an antibiotic regimen including doxycycline and Ceftin with fluconazole was prescribed by Dr. Camara for outpatient use. The patient will also return home on her usual medical regimen with no other significant changes. At the time of discharge, a coccidia mycosis antibody was still pending in the [facility] system. cc: Saleem Rendon MD
[2018-08-31] MEDS ORDERED: LASIX PO SCH (09:00)
[2018-08-31 12:42] LABS: COCCIDIOIDES AB SCREEN SERUM SEE COMMENTS
== END 2018-08-30 12:44 | disposition home or self-care (01) | DRG 194 ==
LOC: OBSVTOIN 13:08 → INTOOBSV 13:08 → DIRADM 13:08 → 4N 13:49
PROVIDERS: ADMIT Internal Medicine; ATTEND Internal Medicine
CPT/HCPCS: 71010; 71020; 71045; 71046; 71250; 80053; 82784; 83735; 84100; 84443; 85025; 86635; 86644; 86645; 87040; 87070; 87205; 87275; 87276; 87449; 87804; 87899; 89220; 94640; 94761; 94799; 97161; A9270; J0456; J0692; J0696; J1561; J2405; J2543; J3370; J7030; J7040